=== PATIENT | female | born 1955 | race Caucasian/White ===

== ENCOUNTER 2020-03-31 18:31 | Emergency (ER) | payer OTHER ==
[2020-03-31] MEDS ORDERED: Ondansetron 4 MG/2 ML SDV IVPUSH ONE (18:37)
[2020-03-31] MEDS ORDERED: Sodium Chloride 0.9% 1,000 ML IV ONE (18:37)
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
[2020-03-31 19:09] LABS: ANION GAP 14.8 mEq/L (7-13); CHLORIDE,CL 103 mmol/L (98-107); SODIUM,NA 140 mmol/L (136-145)
[2020-03-31] MEDS ORDERED: Gabapentin 300 MG Cap PO ONE (20:45)
[2020-03-31 22:58] VITALS: BP 101/51; PULSE 75
== END 2020-03-31 23:53 | disposition home or self-care (01) ==
LOC: DL.ED 18:31
DX: R55 Syncope and collapse (principal); R11.0 Nausea; G25.81 Restless legs syndrome; E03.9 Hypothyroidism, unspecified; E66.9 Obesity, unspecified; Z68.41 Body mass index [BMI] 40.0-44.9, adult; Z88.6 Allergy status to analgesic agent; Z88.5 Allergy status to narcotic agent; Z88.8 Allergy status to other drugs, medicaments and biological substances; Z79.899 Other long term (current) drug therapy
CPT/HCPCS: 36415; 80053; 81003; 83605; 84484; 85025; 87040; 93005; 96361; 96374; 99284; A9270; J2405; J7030

== ENCOUNTER 2020-05-16 08:29 | Emergency (ER) | payer OTHER ==
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
[2020-05-16 09:00] VITALS: BP 135/75; PULSE 63
--- NOTE | 2020-05-16 09:43 | CR ---
PROCEDURE INFORMATION: Exam: XR Chest, 2 Views Exam date and time: 05/16/2020 9:19 AM Age: 64 years old Clinical indication: Shortness of breath TECHNIQUE: Imaging protocol: XR of the chest Views: 2 views. COMPARISON: CR Chest 2V 11/02/2016 2:39 PM FINDINGS: Tubes, catheters and devices: There is again hardware in the cervical spine. Lungs: Unremarkable. No consolidation. Pleural space: Unremarkable. No pleural effusion. No pneumothorax. Heart/Mediastinum: The cardiomediastinal silhouette is fairly stable in appearance. Bones/joints: Degenerative changes again involve the spine. IMPRESSION: No evidence for acute pulmonary disease or significant change since 11/02/16.
[2020-05-16 09:51] LABS: ANION GAP 11.9 mEq/L (7-13); CHLORIDE,CL 102 mmol/L (98-107); SODIUM,NA 137 mmol/L (136-145)
== END 2020-05-16 10:15 | disposition home or self-care (01) ==
LOC: DL.ED 08:29
DX: R06.02 Shortness of breath (principal); E03.9 Hypothyroidism, unspecified; E66.9 Obesity, unspecified; Z68.37 Body mass index [BMI] 37.0-37.9, adult; Z20.828 Contact with and (suspected) exposure to other viral communicable diseases; Z88.8 Allergy status to other drugs, medicaments and biological substances; Z88.5 Allergy status to narcotic agent; Z88.1 Allergy status to other antibiotic agents; Z88.6 Allergy status to analgesic agent; Z79.899 Other long term (current) drug therapy
CPT/HCPCS: 36415; 71046; 80053; 84484; 85025; 93005; 99285-25; U0002

== ENCOUNTER 2020-09-04 09:41 | Emergency (ER) | payer OTHER ==
[2020-09-04 09:42] VITALS: BP 127/72; PULSE 65
--- NOTE | 2020-09-04 10:06 | CR ---
PROCEDURE INFORMATION: Exam: XR Chest, 1 View Exam date and time: 09/04/2020 9:55 AM Age: 65 years old Clinical indication: Shortness of breath; Additional info: Chest pain/short of breath TECHNIQUE: Imaging protocol: XR of the chest Views: 1 view. COMPARISON: CR Chest 2V 05/16/2020 9:19 AM FINDINGS: Lungs: Unremarkable. No consolidation. Pleural space: Unremarkable. No pleural effusion. No pneumothorax. Heart/Mediastinum: Unremarkable. No cardiomegaly. Bones/joints: Unremarkable. IMPRESSION: No acute findings.
[2020-09-04 10:28] LABS: ANION GAP 15.5 mEq/L (7-13); CHLORIDE,CL 104 mmol/L (98-107); SODIUM,NA 141 mmol/L (136-145)
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
[2020-09-04] MEDS ORDERED: methylPREDNISolone Sodium Succinate 40 MG/1 ML SDV IVPUSH ONE (11:01)
[2020-09-04] MEDS ORDERED: Sodium Chloride 0.9% 1,000 ML IV ONE (11:01)
== END 2020-09-04 12:25 | disposition home or self-care (01) ==
LOC: DL.ED 09:41
DX: J06.9 Acute upper respiratory infection, unspecified (principal); E86.0 Dehydration; E03.9 Hypothyroidism, unspecified; E66.9 Obesity, unspecified; Z88.1 Allergy status to other antibiotic agents; Z88.5 Allergy status to narcotic agent; Z88.6 Allergy status to analgesic agent; Z88.8 Allergy status to other drugs, medicaments and biological substances; Z79.899 Other long term (current) drug therapy; Z68.34 Body mass index [BMI] 34.0-34.9, adult; Z90.710 Acquired absence of both cervix and uterus
CPT/HCPCS: 36415; 71045; 80053; 81003; 83605; 84484; 85025; 87040; 93005; 96374; 99285; J2920; J7030

== ENCOUNTER 2021-07-03 09:32 | Emergency (ER) | payer MEDICARE, OTHER ==
[2021-07-03 09:46] VITALS: BP 114/52; PULSE 75
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
--- NOTE | 2021-07-03 10:06 | CR ---
PROCEDURE INFORMATION: Exam: XR Chest Exam date and time: 07/03/2021 9:53 AM Age: 65 years old Clinical indication: Other: Chest pain TECHNIQUE: Imaging protocol: XR of the chest. Views: 1 view. COMPARISON: CR Chest 1V Frontal 09/04/2020 9:55 AM FINDINGS: Lungs: Unremarkable. No consolidation. Pleural spaces: Unremarkable. No pleural effusion. No pneumothorax. Heart/Mediastinum: Unremarkable. No cardiomegaly. Bones/joints: Plate screw fixation of the visualized cervical spine. Degenerative arthritis in the shoulders and thoracic spine. IMPRESSION: No acute findings
[2021-07-03 10:20] LABS: ANION GAP 15.6 mEq/L (7-13); CHLORIDE,CL 106 mmol/L (98-107); SODIUM,NA 143 mmol/L (136-145)
[2021-07-03] MEDS: GI Cocktail Oral Solution 30 ML PO ONE (10:20)
[2021-07-03] MEDS ORDERED: Iopamidol 612 MG/ML 100 ML Bottle IVPUSH ONE (10:58)
== END 2021-07-03 11:21 | disposition home or self-care (01) ==
LOC: DL.ED 09:32
DX: K21.9 Gastro-esophageal reflux disease without esophagitis (principal); R94.5 Abnormal results of liver function studies; E78.00 Pure hypercholesterolemia, unspecified; E03.9 Hypothyroidism, unspecified; D64.9 Anemia, unspecified; E66.9 Obesity, unspecified; Z68.32 Body mass index [BMI] 32.0-32.9, adult; Z79.899 Other long term (current) drug therapy; Z88.6 Allergy status to analgesic agent; Z88.5 Allergy status to narcotic agent; Z88.1 Allergy status to other antibiotic agents
CPT/HCPCS: 36415; 71045; 80053; 80307; 82150; 83605; 83690; 83735; 83880; 84484; 85025; 86140; 93005; 99283; 99284-25; A9270-GY

== ENCOUNTER 2021-10-13 14:44 | Emergency (ER) | payer MEDICARE, OTHER ==
[2021-10-13 15:05] VITALS: BP 138/81; PULSE 82
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
== END 2021-10-13 15:55 | disposition home or self-care (01) ==
LOC: DL.ED 14:44
DX: J01.90 Acute sinusitis, unspecified (principal); E78.00 Pure hypercholesterolemia, unspecified; E03.9 Hypothyroidism, unspecified; E66.9 Obesity, unspecified; Z68.33 Body mass index [BMI] 33.0-33.9, adult; Z88.5 Allergy status to narcotic agent; Z88.8 Allergy status to other drugs, medicaments and biological substances; Z88.1 Allergy status to other antibiotic agents; Z79.899 Other long term (current) drug therapy
CPT/HCPCS: 99283

== ENCOUNTER 2022-03-14 13:12 | Emergency (ER) | payer BC, MEDICARE, OTHER ==
[2022-03-14 13:54] VITALS: BP 152/82; PULSE 93
== END 2022-03-14 14:54 | disposition home or self-care (01) ==
LOC: DL.ED 13:12
DX: M25.561 Pain in right knee (principal); E78.00 Pure hypercholesterolemia, unspecified; E03.9 Hypothyroidism, unspecified; E66.9 Obesity, unspecified; Z68.38 Body mass index [BMI] 38.0-38.9, adult; Z86.16 Personal history of COVID-19; Z88.5 Allergy status to narcotic agent; Z88.1 Allergy status to other antibiotic agents; Z88.8 Allergy status to other drugs, medicaments and biological substances; Z79.899 Other long term (current) drug therapy; Z96.651 Presence of right artificial knee joint
CPT/HCPCS: 73564-RT; 99283; 99283-25

== ENCOUNTER 2022-05-20 18:30 | Emergency (ER) | payer MEDICARE ==
[2022-05-20] MEDS ORDERED: Sulfamethoxazole/Trimethoprim 800-160 MG Tab PO ONE (18:31)
[2022-05-20] MEDS ORDERED: metroNIDAZOLE 250 MG Tab PO ONE (18:31)
[2022-05-20 20:33] LABS: ANION GAP 13.1 mEq/L (7-13)
[2022-05-20] MEDS ORDERED: Sodium Chloride 0.9% 1,000 ML IV ONE ×2 (21:19→23:10)
[2022-05-20] MEDS ORDERED: Sodium Chloride 0.9% 10 ML Syringe FLUSH PRN (21:19)
[2022-05-20] MEDS ORDERED: Iopamidol 612 MG/ML 100 ML Bottle IVPUSH ONE (21:21)
[2022-05-20 22:42] VITALS: BP 127/74; PULSE 67
[2022-05-20] MEDS ORDERED: metroNIDAZOLE/Normal Saline 500 MG in Premix Bag 100 BAG IV ONE (22:58)
[2022-05-20] MEDS ORDERED: Piperacillin/Tazobactam 3.375 GM in Sodium Chloride 0.9% 100 ML IV ONE (23:01)
[2022-05-20] MEDS ORDERED: Sulfamethoxazole/Trimethoprim 800-160 MG Tab ONE (23:30)
[2022-05-20] MEDS ORDERED: metroNIDAZOLE 250 MG Tab ONE (23:36)
== END 2022-05-21 00:42 | disposition home or self-care (01) ==
LOC: DL.ED 18:30
DX: K57.32 Diverticulitis of large intestine without perforation or abscess without bleeding (principal); E78.00 Pure hypercholesterolemia, unspecified; E03.9 Hypothyroidism, unspecified; E66.9 Obesity, unspecified; Z68.34 Body mass index [BMI] 34.0-34.9, adult; Z86.16 Personal history of COVID-19; Z88.5 Allergy status to narcotic agent; Z88.8 Allergy status to other drugs, medicaments and biological substances; Z79.899 Other long term (current) drug therapy
CPT/HCPCS: 36415; 74177; 80053; 81001; 83690; 85025; 87086; 96361; 96365; 96367; 99284-25; A9270-GY; J2543; J3490; J7030; Q9967

== ENCOUNTER 2024-03-07 19:22 | Emergency (ER) | payer MEDICARE ==
[2024-03-07 19:59] LABS: APPEARANCE,URINE CLOUDY (CLEAR); BILIRUBIN,URINE NEGATIVE (NEGATIVE); COLOR,URINE YELLOW (YELLOW); GLUCOSE,URINE NEGATIVE (NEGATIVE); KETONES,URINE NEGATIVE (NEGATIVE); LEUKOCYTE ESTERASE,URINE MODERATE (NEGATIVE); NITRITE,URINE NEGATIVE (NEGATIVE); OCCULT BLOOD,URINE TRACE-INTACT (NEGATIVE); PH,URINE 5.5 (5.0-9.0); PROTEIN,URINE 30 (NEGATIVE); UROBILINOGEN,URINE 0.2 mg/dL (0.2-1.0)
[2024-03-07 20:11] LABS: AMORPHOUS SEDIMENT,URINE FEW /HPF (NOT SEEN); BACTERIA,URINE MODERATE /HPF (0-FEW/HPF); EPITHELIAL CELLS,URINE MODERATE /HPF (NOT SEEN); MUCUS,URINE FEW /LPF (NOT SEEN); RBC,URINE 0-5 /HPF (0-5); WBC,URINE SEMI-PACKED /HPF (0-5/HPF)
[2024-03-07] MEDS: Take Home: Ciprofloxacin HCl 500 MG, 6 Tab Pack PO ONE (20:32)
[2024-03-07 20:43] VITALS: BP 154/78; PULSE 66
== END 2024-03-07 21:20 | disposition home or self-care (01) ==
LOC: DL.ED 19:22
DX: N30.00 Acute cystitis without hematuria (principal); E03.9 Hypothyroidism, unspecified; E66.9 Obesity, unspecified; Z68.28 Body mass index [BMI] 28.0-28.9, adult; Z88.5 Allergy status to narcotic agent; Z88.1 Allergy status to other antibiotic agents; Z88.6 Allergy status to analgesic agent; Z88.8 Allergy status to other drugs, medicaments and biological substances; Z79.899 Other long term (current) drug therapy; Z86.16 Personal history of COVID-19
CPT/HCPCS: 81001; 87086; 87088; 87186; 99284; A9270